=== PATIENT | female | born 1970 | race Caucasian/White ===

== ENCOUNTER 2017-11-25 10:25 | Emergency (ER) | payer MEDICAID ==
[~2017-11-25] VITALS: Ht 162.6 cm; Wt 79.4 kg
--- NOTE | 2017-11-25 10:40 | NUR ---
PATIENT BROUGHT SELF IN. C/O VAGINAL BLEEDING FOR MONTHS. DENIES DISCHARGE. STATES POSSIBLE LAST PERIOD OF THIS YEAR. + CLOTS. BRIGHT RED BLOOD. NO TRAUMA NOTED TO JOSE AREA. PATIENT STATES SHE GOES THROUGH A WHOLE PACK OF PADS IN 1 DAY SOMETIMES CHANGING PAD OUT WITHIN 30MINUTES.
[2017-11-25 11:04] LABS: BASOPHILS # (AUTO) 0.1 /CMM (0.0-0.2); BASOPHILS % (AUTO) 1.1 % (0.0-2.0); EOSINOPHILS % (AUTO) 2.8 % (0.0-6.0); HEMATOCRIT 43 % (33-45); HEMOGLOBIN 14.3 g/dL (11.5-14.8); LYMPHOCYTES % (AUTO) 23.5 % (20.0-44.0); MEAN CORPUSCULAR HGB CONC 33 g/dl (31.0-36.0); MEAN CORPUSCULAR VOLUME 81 fL (82-100); MONOCYTES # (AUTO) 0.6 /CMM (0.1-1.30); MONOCYTES % (AUTO) 6.8 % (2.0-12.0); NEUTROPHILS # (AUTO) 5.8 /CMM (1.8-8.9); NEUTROPHILS % (AUTO) 65.8 % (43.0-81.0); PLATELET COUNT (AUTO) 339 /CMM (150-450); RDW COEFFICIENT OF VARIATION 13.4 (11.5-15.0); RED BLOOD CELL COUNT(AUTO) 5.35 MIL/uL (4.0-5.2); WHITE BLOOD COUNT (AUTO) 8.6 K/uL (4.3-11.0)
--- NOTE | 2017-11-25 11:07 | NUR ---
URINE SAMPLE PROVIDED
[2017-11-25 11:18] LABS: INR 0.92 (0.85-1.15)
--- NOTE | 2017-11-25 11:57 | NUR ---
US TECH AT BEDSIDE
[2017-11-25 11:59] LABS: COLOR,URINE RED (YELLOW)
[2017-11-25 12:01] LABS: APPEARANCE,URINE CLOUDY (CLEAR); BILIRUBIN,URINE NEGATIVE (NEGATIVE); BLOOD, URINE 3+ Ery/uL (NEGATIVE); KETONES,URINE NEGATIVE (NEGATIVE); PH,URINE 6.5 (5.0-8.0); PROTEIN,URINE 1+ mg/dl (NEGATIVE); UGLUCOSE NEGATIVE (NEGATIVE); UROBILINOGEN,URINE 0.2 EU/dL (0.2)
[2017-11-25 12:02] LABS: LEUKOCYTE ESTERASE ,URINE NEGATIVE (NEGATIVE); NITRITE, URINE NEGATIVE (NEGATIVE)
[2017-11-25 12:03] LABS: BACTERIA,URINE Few /HPF (None Seen); RBC,URINE 51-80 /HPF (0-2)
[2017-11-25 12:04] LABS: SQUAMOUS EPITHELIAL CELL,UR Few /HPF (None Seen)
--- NOTE | 2017-11-25 13:40 | NUR ---
Patient discharged to home in stable condition. Written and verbal after care instructions given. Patient verbalizes understanding of instruction.
[2017-11-25 13:50] VITALS: BP 130/79
== END 2017-11-25 13:51 | disposition home or self-care (01) ==
LOC: ER 10:33
DX: N93.8 Other specified abnormal uterine and vaginal bleeding (principal); F10.10 Alcohol abuse, uncomplicated; F17.200 Nicotine dependence, unspecified, uncomplicated
CPT/HCPCS: 36415; 76856; 81001; 84703; 85025; 85730; 86850; 99285; A4606; Z7610; 81000-TC